=== PATIENT | female | born 1980 | race African-American/Black ===

== ENCOUNTER 2025-10-19 11:09 | Outpatient (AMB) | payer MEDICARE, MEDICAID, SELFPAY ==
--- NOTE | 2025-10-19 11:10 | MHC.PC.OV ---
Vital Signs 10/19/25 11:11 Height 5 ft 5 in Weight 185 lb 2 oz BMI 30.8 BP 112/78 Blood Pressure Location Lt brachial Position Sitting Respiration 16 Pulse 58 Pulse Source Pulse Oximeter Temp 97.3 F Temp Source Temporal Artery Scan Pulse Oximetry (%) 98 Oxygen Delivery Method Room Air Intake Visit Reasons: medication f/u Fibrous Plasterer Required: No Accompanied by: Self / Same As Patient Allergies gabapentin Allergy (Intermediate, Verified 10/19/25 11:36) mental fogginess Medication List - Last Reconciled 10/19/25 by Yumiko Curtis MD clonidine HCl 0.1 mg PO DAILY CPAP (CPAP Machine/Device) As directed lorazepam mg PO meloxicam 15 mg PO DAILY methylphenidate HCl ER 20 mg PO DAILY methylphenidate HCl ER 10 mg PO DAILY triamcinolone acetonide 0.025% topical Tobacco use date assessed: 10/19/25 Dental Screening Dental Screen Date: 10/19/25 Did you have a dental visit in the last 12 months?: Yes Did you have a dental problem in the last 6 months where you did not have access to dental care?: No Was dental information given to patient?: Patient has dentist HPI HPI Comments History of Present Illness Details The patient is a 45-year-old female presenting to re-critical access hospital care and for management of multiple medical issues including sleep apnea, hypertension, and chronic hip pain. Obstructive sleep apnea: The patient reports experiencing episodes of gasping for air while sleeping, which prompted an urgent care visit. She completed a home sleep study at [facility] that confirmed a diagnosis of sleep apnea. She received her CPAP machine last week from [facility]. Hypertension: The patient's hypertension is currently managed with clonidine 0.1 mg, which she takes at night but reports it causes a hangover effect and makes her feel tired the next day. She previously took amlodipine but discontinued it due to constipation and ankle swelling. She also previously tried propranolol but stopped, attributing irritability to the medication, though she now thinks it may have been due to poor sleep. The patient also experiences occasional palpitations at night. Left hip labral tear: The patient sustained a left hip injury about a year ago from a fall involving a dog. An MRI confirmed a torn labrum, and she also has tendinitis. She is undergoing physical therapy. The pain is exacerbated by sleeping on her left side an was re-inflamed after a fall out of bed in September. She previously used diclofenac, which caused constipation, and gabapentin, which she stopped due to cognitive fogginess and increased appetite. She currently uses meloxicam as needed for pain. Obesity The patient reports an inability to lose weight and has gained from 179 lbs to 185 lbs. She has a referral to a weight management program scheduled for November. She acknowledges nighttime comfort eating, including ice cream, and her activity is limited to walking due to her hip pain. History of Concussion: The patient sustained a concussion in August after hitting her head. She was evaluated at the hospital, and a CT scan of her head was negative for any bleeding. She experienced symptoms of cognitive fogginess and difficulty focusing afterward. Medical History: - Obstructive sleep apnea, diagnosed via home sleep study - Hypertension - Left hip labral tear with tendinitis, secondary to a fall - Concussion in August, with negative head CT - Heart palpitations - Anxiety - Hirsutism - ADHD - Depression - Thyroid nodule Social History: - Substance Use: Has been trying to cut back on coffee. - Exercise: Activity is limited to walking due to chronic left hip pain. - Nutrition: Reports nighttime snacking for comfort, including eating ice cream. - Has 2 sons Diagnostic Results: - Home Sleep Study: Positive for obstructive sleep apnea with an apnea-hypopnea index of about 8 events/hour. - Head CT (August): No acute intracranial bleeding. - Left Hip MRI: Confirmed a torn labrum and showed tendinitis. [facility] Medical History (Updated 10/19/25 @ 17:09 by Yumiko Crutis MD) Vitamin B12 deficiency (dietary) anemia Vitamin D deficiency ADHD Hyperlipidemia, unspecified PARUL III with severe dysplasia Primary hypertension CAREY (obstructive sleep apnea) Depression with anxiety Surgical History (Updated 10/19/25 @ 11:17 by Yumiko Curtis MD) H/O reduction mammoplasty Family History (Updated 10/19/25 @ 11:12 by Yumiko Curtis MD) Other Carotid artery disease Social History Housing: Apartment Patient Tobacco Use Status: Never used Tobacco e-Cigarette/Vaping Use: Never Used service: No Current occupational status: employed 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 How often do you have a drink containing alcohol?: Never 3. How often do you have six or more drinks on one occasion?: Never Total Score: 0 Review of Systems Narrative Review of Systems - Constitutional: Reports fatigue and a hangover effect from clonidine. - Reports weight gain of 6 pounds (from 179 to 185 lbs). - Respiratory: Reports history of gasping for air at night, which has resolved since starting CPAP therapy. - Cardiovascular: Reports intermittent heart palpitations at night. - GI: Reports history of constipation with amlodipine and diclofenac. - Musculoskeletal: Reports chronic left hip pain, which worsens with sleeping on her left side an movement. - Integumentary: Reports history of hirsutism. Physical exam (Primary Care) Vital Signs: Last Vital Signs Temp 97.3 F 10/19/25 11:11 Pulse 58 10/19/25 11:11 Resp 16 10/19/25 11:11 BP 112/78 10/19/25 11:11 Pulse Ox 98 10/19/25 11:11 Oxygen Delivery Method Room Air 10/19/25 11:11 BMI result Body Mass Index 30.8 Tobacco/Smoking Status: Tobacco use Status Tobacco use date assessed 10/19/25 10/19/25 11:11 Patient Tobacco Use Status Never used Tobacco 10/19/25 11:19 e-Cigarette/Vaping Use Never Used 10/19/25 11:19 Narrative Physical Exam - Lungs: Clear to auscultation bilaterally. - Cardiovascular: Regular rhythm with normal heart sounds and a soft murmur noted. - Abdomen: Soft, non-tender, with normal bowel sounds. - Musculoskeletal: On examination of the lower extremities, lifting the left leg is limited by pain; the right leg has better range of motion. Coding Level of Care Code Est Pt Level 4 (33499) Complex EM visit Add On G2211 Diagnoses Primary hypertension I10 CAREY (obstructive sleep apnea) G47.33 Familial hypercholesterolemia, unspecified type E78.019 Familial hypercholesterolemia type: unspecified type Hyperlipidemia type: familial hypercholesterolemia Assessment & Plan Assessment & Plan (1) Primary hypertension: Code(s): I10 - Essential (primary) hypertension Category: Medical (2) CAREY (obstructive sleep apnea): Code(s): G47.33 - Obstructive sleep apnea (adult) (pediatric) Category: Medical (3) Hyperlipidemia, unspecified: Code(s): E78.5 - Hyperlipidemia, unspecified Category: Medical Qualifiers: Familial hypercholesterolemia type: unspecified type Hyperlipidemia type: familial hypercholesterolemia Qualified Code(s): E78.019 - Familial hypercholesterolemia, unspecified Plan Assessment and Plan 1. Obstructive Sleep Apnea - Patient was recently diagnosed via a home sleep study and has initiated CPAP therapy with good effect. - A referral will be placed to the in-house sleep clinic for ongoing management. - The patient was advised to have her sleep study records sent from [facility] and to update her PCP information with her CPAP supplier, [employer]. 2. Hypertension - Patient reports a morning hangover effect from her nightly clonidine. - The plan is to shift her dose to be taken with dinner. - If symptoms do not improve after one week, will consider switching her back to propranolol. 3. Left Hip Labral Tear - The patient has chronic pain that limits her activity and sleep. - She has had side effects from multiple oral analgesics. - The plan is to minimize the use of oral meloxicam, recommending it only for severe flares on an ahwae-mypcp-sqc basis. - For baseline pain control, a prescription for Tylenol Arthritis 650 mg TID will be sent. - A prescription for topical Voltaren gel will also be sent to provide local pain relief while minimizing systemic side effects. 4. Obesity - Patient has gained weight and has an upcoming appointment with a weight management program. - This is encouraged. - She was also advised to use the [employer] sarah to begin tracking caloric intake. - Weight loss will be beneficial for both her sleep apnea and hypertension. 5. Health Maintenance and Screening - The patient is due for labs. - Orders have been placed for a fasting lipid panel, HbA1c, vitamin D, vitamin B12, 6. Hirsutism - Patient has concerns for PCOS. - The ordered HbA1c will help evaluate for insulin resistance. - She has an upcoming AUTOMOTIVE PARTS COUNTER PERSON appointment, and any pelvic ultrasound results will be helpful for further assessment. 7. Follow-up - Patient to follow up in 4 months Plan - Place referral to in-house sleep clinic for management of obstructive sleep apnea. - Patient to contact CPAP supplier ([employer]) to update her primary care provider information. - Adjust clonidine 0.1 mg timing to take with dinner to mitigate morning fatigue. - If fatigue persists on clonidine, will switch to propranolol. - Prescribe Tylenol Arthritis 650 mg TID for chronic hip pain. - Advise limited use of meloxicam (e.g., every other day) for pain flares. - Prescribe topical Voltaren (diclofenac) gel for left hip pain. - Patient to attend scheduled appointment with weight management program. - Order fasting labs: lipid panel, HbA1c, vitamin D, vitamin B12, and iron profile. - Schedule follow-up appointment in 4 months. Discussion Notes We reviewed the importance of CPAP therapy, and I provided a referral to our sleep clinic for specialized management. We addressed her blood pressure management, agreeing to adjust the timing of her clonidine to mitigate morning fatigue, with a plan to switch to propranolol if this is not effective since she would also benefit from anxiety management with propanolol. For her chronic left hip pain from a labral tear, we discussed the risks of long-term oral NSAID use, including elevated blood pressure and GI upset. Our plan involves using Tylenol Arthritis for baseline pain and topical Voltaren gel to minimize systemic side effects, with oral meloxicam reserved for occasional flares. I encouraged her to keep her appointment with the weight management program and recommended she start tracking her food intake with the [employer] sarah to prepare for that visit. Patient Instructions - Take your blood pressure pill (clonidine) with your dinner instead of at bedtime to see if it helps with morning tiredness. - If you still feel very tired in the mornings after one week, please call our office. - For your hip pain, you can take Tylenol Arthritis three times a day (with meals). - Only use your meloxicam pill for severe pain, and try not to take it every day. - A prescription for Voltaren gel, a pain-relieving rub, has been sent to your pharmacy. - A referral has been sent to our sleep clinic for your sleep apnea. - They will call you to schedule an appointment. - To get used to your CPAP machine, you can wear it for a few hours during the day while you are awake. - Please go to a lab for blood work. - You will need to fast (no food or drink except water) before the test. Orders: Orders Comprehensive Met. Panel Today D51.8 - Other vitamin B12 deficiency anemias, E55.9 - Vitamin D deficiency, unspecified, E78.5 - Hyperlipidemia, unspecified, I10 - Essential (primary) hypertension Lipid Panel Today D51.8 - Other vitamin B12 deficiency anemias, E55.9 - Vitamin D deficiency, unspecified, E78.5 - Hyperlipidemia, unspecified, I10 - Essential (primary) hypertension Vitamin D 25-OH Total Today D51.8 - Other vitamin B12 deficiency anemias, E55.9 - Vitamin D deficiency, unspecified, E78.5 - Hyperlipidemia, unspecified, I10 - Essential (primary) hypertension TSH reflex Free T4 Today D51.8 - Other vitamin B12 deficiency anemias, E55.9 - Vitamin D deficiency, unspecified, E78.5 - Hyperlipidemia, unspecified, I10 - Essential (primary) hypertension IRON PROFILE Today D51.8 - Other vitamin B12 deficiency anemias, E78.5 - Hyperlipidemia, unspecified, G47.33 - Obstructive sleep apnea (adult) (pediatric), I10 - Essential (primary) hypertension Complete Blood Count Auto Diff Today D51.8 - Other vitamin B12 deficiency anemias, E55.9 - Vitamin D deficiency, unspecified, E78.5 - Hyperlipidemia, unspecified, I10 - Essential (primary) hypertension Vitamin B12 Today D51.8 - Other vitamin B12 deficiency anemias, E55.9 - Vitamin D deficiency, unspecified, E78.5 - Hyperlipidemia, unspecified, I10 - Essential (primary) hypertension Hemoglobin A1c Today D51.8 - Other vitamin B12 deficiency anemias, E55.9 - Vitamin D deficiency, unspecified, E78.5 - Hyperlipidemia, unspecified, I10 - Essential (primary) hypertension Ferritin Today D51.8 - Other vitamin B12 deficiency anemias, E78.5 - Hyperlipidemia, unspecified, G47.33 - Obstructive sleep apnea (adult) (pediatric), I10 - Essential (primary) hypertension Referrals Sleep Medicine Referral G47.33 - Obstructive sleep apnea (adult) (pediatric) Medications: New acetaminophen ER (Tylenol Arthritis Pain) 650 mg PO Q8H PRN 90 tabs 4RF hip pain 30 days diclofenac sodium 1% apply to single elbow, wrist or hand; for hand includes palm/fingers/back of hand 2 grams topical QID 100 grams 3RF hip pain 30 days
[2025-10-19 11:11] VITALS: BP 112/78; PULSE 58; RESP 16; TEMP 36.3; O2SAT 98; BMI 30.8
--- OUTSIDE RECORDS SUMMARY | 2025-10-20 01:36 | XMS_ITS | Encounter Summary ---
Author Organization [facility] Address [address] [facility] [address] [place] [address] Phone Care Team Providers Care Car Record Clerk Name Role Phone Yumiko Curtis MD Primary Care Provider + Encounter Details Date Type Department Care Team (Late st Contact Info) Description 08/20/2025 Procedure Pass [facility], Ct Scan - [address] [address] Social History Tobacco Use Types Packs/Day Years Used Date Smoking Tobacco: Never Smokeless Tobacco: Never Alcohol Use Standard Drinks/Week Comments Never 0 (1 standard drink = 0.6 oz pur e alcohol) Education Answer Date Recorded Are you interested in more education? Not on easton e 03/29/2023 Are you concerned about learning? Not on file 03/29/2023 No 03/29/2023 No 03/29/2023 Digital Access Answer Date Recorded No 04/29/2023 No 04/29/2023 Reliable internet access at home? Not on file 04/29/2023 Device with a working camera? Not on file Comments Unknown Sex and Gender Information Value Date Recorded Sex Assigned at Not on file Legal Sex Female 9:21 PM EDT Gender Identity Not on file Sexual Orientation Not on file documented as of this encounter Functional Status * Calculated C-SSRS Risk Score (Lifetime/Recent) Answer Date of Assessment Author No Risk Indicated 08/20/2025 10:19 AM EDT Magy Baez, RN * [place] Suicide Severity Rating Scale (Screener/Recent Self-Report) Question Answer Date of Assessment Author 1. Wish to be (Past 1 Month) No 025 10:19 AM Magy Garcia RN 2. Non-Specific Active Suici brittani Thoughts (Past 1 Month) No 08/20/2025 10:19 AM Ariadna Garcia RN 6. Suicidal Behavior (Lifetime) No 5 10:19 AM Magy Garcia RN documented as of this encounter Plan of Treatment Not on file documented as of this encounter Visit Diagnoses Not on filedocumented in this encounter Care Teams Car Record Clerk Relationship Specialty Start Date End Date Yumiko Curtis MD PCP - General Internal Medicine 06/03/22 documented as of this encounter Additional Source Comments The information contained in this document represents components of the legal health record. It is not the complete legal health record.[facility]
--- OUTSIDE RECORDS SUMMARY | 2025-10-20 01:37 | XMS_ITS | Clinical Summary ---
Author Organization [facility] Address [address] [facility] [address] [place] [address] Phone Care Team Providers Care Digital Operations Analyst Name Role Phone Yumiko Curtis MD Primary Care Provider + Allergies Active Allergy Reactions Criticality Noted Date Comments Gabapentin Swelling 11/01/2022 Medications FLUOXETINE HCL (PROZAC ORAL) 2 tab Oral Activ e calcium carbonate-vitami n D3 1,500 mg (600 mg elemental)-800 units Tab Take 1 tablet by mouth daily. 04/01/2022 Active ADDERALL XR 30 mg 24 hr capsule 05/30/2022 Ac tive dextroamphetamin e-amphetamine (ADDERALL) 15 mg Tab tablet 05/25/2022 Active fexofenadine (ASAEL) 180 MG tablet Take 180 mg by mouth daily. 03/31/2022 Active buPROPion (WELLBUTRIN XL) 150 MG ER 24 hr tablet Take 150 mg by mouth every morning. 09/19/2022 Active tiZANidine (ZANAFLEX) 2 MG tablet Take by mouth. 09/07/2022 Active Active Problems No known active problems Encounters Date Type Department Care Team Description 08/20/2025 12:27 PM EDT - 08/20/2025 12:28 PM EDT Emergency [facility] [address] [place] [address] Discharge Disposition: Home or Self Care 08/20/2025 Procedure Pass [facility], Ct Scan - [facility] [address] [place] [address] from Last 3 Months Social History Tobacco Use Types Packs/Day Years [...] on file Sexual Orientation Not on file Last Filed Vital Signs Vital Sign Reading Time Taken Comments Blood Pressure 138/68 08/20/2025 12:24 PM EDT Pulse 68 08/20/2025 12:24 PM EDT Temperature 36.5 C (97.7 F) 08/20/2025 12:24 PM EDT Respiratory Rate 16 08/20/2025 12:24 PM EDT Oxygen Saturation 98% 08/20/2025 12:24 PM EDT Inhaled Oxygen Concentration - - Weight 80.7 kg (178 lb) 08/20/2025 10:17 AM EDT Height 162.6 cm (5' 4 ) 08/20/2025 10:17 AM EDT Body Mass Index 30.55 08/20/2025 10:17 AM EDT Plan of Treatment Health Maintenance Due Date Last Done Comments DEPRESSION SCREENING 1993 HEPATITIS C SCREENING 1999 HIV ONE-TIME SCREENING (18-6 5 YEARS) 1999 PAP SMEAR 2002 SCREENING FOR DIABETES 2016 MAMMOGRAM 2021 INFLUENZA VACCINE (#1) 2025 09/20/2011 COVID-19 VACCINE ( - 2024-2 6 season) 2025 Adult Td,Tdap Booster 09/02/2033 09/02/2023 , 12/28/2011 SMOKING STATUS SCREENING (On ce After 26 Yrs) Completed 11/01/2022 HEPATITIS A VACCINES Aged Out No long er eligible based on patient's age to complete this topic HIB VACCINES Aged Out No longer eligi ble based on patient's age to complete this topic IPV VACCINES Aged Out No longer eligi ble based on patient's age to complete this topic MENINGOCOCCAL VACCINES (ACWY) Aged Out No longer eligible based on patient's age to complete this topic MENINGOCOCCAL VACCINES (B) Aged Out N o longer eligible based on patient's age to complete this topic PNEUMOCOCCAL VACCINES (0-49 years) Aged Out No longer eligible b ased on patient's age to complete this topic Medical Devices Not on file Procedures Procedure Name Priority Date/Time Associated Diagnosis Comments CT HEAD WITHOUT CONTRAST Routine 08/20/2025 10:39 AM EDT from Last 3 Months Results * CT HEAD WITHOUT CONTRAST (08/20/2025 10:39 AM EDT) Anatomical Region Laterality Modality Head Computed Tomogra phy 08/20/2025 10:5 3 AM EDT Impressions 08/20/2025 11:12 AM EDT No acute intracranial findings. ATTESTATION: I, Dr. Andrés Andrews as teaching physician, have reviewed the images for this case and if necessary edited the report originally created by Husam Guillaume MD. Narrative 08/20/2025 11:[address] HEAD WITHOUT CONTRAST Referring clinician's provided indication for this examination in Epic: * Head trauma, mod-severe TECHNIQUE: CT of the head was performed without intravenous contrast using tailored dose modulation techniques. Images were reconstructed in the axial, coronal, and sagittal planes. COMPARISON: None. FINDINGS: Brain Parenchyma: No midline shift, mass effect, parenchymal hemorrhage, or evidence of acute territorial infarct. Ventricular System and Extra-Axial Spaces: No extra-axial fluid collections. Basal cisterns are patent. No hydrocephalus. Osseous and Extracranial Structures: No calvarial fracture or significant soft tissue hematoma. No significant paranasal sinus disease. No orbital abnormality. Procedure Note Andrés Guzman MD - 08/20/2025 CT HEAD WITHOUT CONTRAST Referring clinician's provided indication for this examination in Epic: *Head trauma, mod-severe TECHNIQUE: CT of the head was performed without intravenous contrast usingtailored dose modulation techniques. Images were reconstructed in theaxial, coronal, and sagittal planes. COMPARISON: None. FINDINGS: Brain Parenchyma: No midline shift, mass effect, parenchymal hemorrhage,or evidence of acute territorial infarct. Ventricular System and Extra-Axial Spaces: No extra-axial fluidcollections. Basal cisterns are patent. No hydrocephalus. Osseous and Extracranial Structures: No calvarial fracture or significantsoft tissue hematoma. No significant paranasal sinus disease. No orbitalabnormality. IMPRESSION: No acute intracranial findings. ATTESTATION: I, Dr. Andrés Andrews as teaching physician, havereviewed the images for this case and if necessary edited the reportoriginally created by Husam Guillaume MD. Magy Lares PA-C IMG CT HEAD/NECK Final Resu lt from Last 3 Months [place] [address] MEDICARE PART A & B Member Subscriber Plan / Payer (Ef fective 2008-Present) Name:Siria Miguel Member ID:[id number] Relation to Subscriber:Self Name:Siria Miguel Subscriber ID:[id number] Payer ID:[id number] Group ID:Not on file Type:Medicare Address: [facility] [employer] [email or web address] [address] [facility] [place] [address] [facility] MEDICARE PART A & [address] [place] [id number] [address] [place] [id number] MEDICARE PART A & [place] [address] [place] [id number] MEDICARE PART A & B [facility] MEDIC[facility] PART A & B [facility] MEDICARE PART A & B [place] MEDICARE PART A & B [facility] MEDICARE PART A & B [facility] Care Teams Digital Operations Analyst Relationship Specialty Start Date End Date Yumiko Curtis MD PCP - General Internal Medicine 06/03/22 Additional Source Comments The information contained in this document represents components of the legal health record. It is not the complete legal health record.[facility]
== END 2025-10-19 12:07 | disposition home or self-care (01) ==
LOC: HO.HMCHD 11:09
PROVIDERS: PCP Family Medicine; Visit Provider Internal Medicine
DX: I10 Essential (primary) hypertension (principal); G47.33 Obstructive sleep apnea (adult) (pediatric); E78.019 Familial hypercholesterolemia, unspecified

== ENCOUNTER → 2025-10-19 11:09 | Outpatient (BNVA) | payer MEDICARE, MEDICAID, SELFPAY | PROVIDERS: PCP Family Medicine; Visit Provider Internal Medicine | DX: G47.33 Obstructive sleep apnea (adult) (pediatric) (principal); I10 Essential (primary) hypertension; M25.552 Pain in left hip; E78.019 Familial hypercholesterolemia, unspecified; E66.9 Obesity, unspecified; L68.0 Hirsutism; Z76.89 Persons encountering health services in other specified circumstances | CPT/HCPCS: 99212 ==